=== PATIENT | male | born 1940 | race African-American/Black ===

== ENCOUNTER 2024-01-24 12:00 | Inpatient (IN) | payer MEDICARE ==
[~2024-01-24] VITALS: Ht 167.6 cm; Wt 45.8 kg
[2024-01-24 12:54] LABS: HEMOGLOBIN. 11.3 g/dL (14.0-18.0); MEAN CORPUSCULAR HEMOGLOBIN 27.2 pg (28.0-32.0); MEAN CORPUSCULAR HGB CONC 31.4 g/dL (31.0-37.0); MEAN CORPUSCULAR VOLUME 86.8 fL (80.0-94.0); MEAN PLATELET VOLUME 8.1 fl (7.4-10.4); PLATELET 201 x1000/uL (130-400); RED BLOOD CELL COUNT 4.14 mill/uL (4.7-6.1); RED CELL DISTRIBUTION WIDTH 17.7 % (11.6-14.6); WHITE BLOOD COUNT 27.3 x1000/uL (4.5-11.0)
[2024-01-24 12:58] LABS: DIFFERENTIAL COMMENT 1
[2024-01-24 13:02] LABS: CALCIUM 10.2 mg/dL (8.7-10.4)
[2024-01-24 13:03] LABS: INR 1.1; PROTHROMBIN TIME 12.4 sec (9.6-11.0)
[2024-01-24 13:06] LABS: CREATININE 1.9 mg/dL (0.6-1.3)
[2024-01-24] MEDS: SODIUM CHLORIDE 0.9% 500 ML IV ONE (13:18)
[2024-01-24 13:56] LABS: CLARITY URINE TURBID (CLEAR); COLOR URINE ORANGE (YELLOW); GLUCOSE URINE NEGATIVE (NEGATIVE); KETONES URINE TRACE (NEGATIVE); LEUKOCYTE ESTERASE URINE 3+ (NEGATIVE); NITRITE URINE NEGATIVE (NEGATIVE); OCCULT BLOOD URINE 2+ (NEGATIVE); PROTEIN URINE 2+ (NEGATIVE); SPECIFIC GRAVITY URINE 1.011 (1.005-1.030); UROBILINOGEN URINE 0.2 E.U./dL (0.2-1.0)
[2024-01-24 14:18] LABS: PLATELET ESTIMATE NORMAL; TOXIC VACUOLATION FEW
[2024-01-24 14:23] LABS: BACTERIA URINE 4+
[2024-01-24 14:29] LABS: AMORPHOUS SEDIMENT URINE 2+ /lpf; SQUAMOUS EPITHELIAL CELL URINE FEW /lpf (RARE/1+); YEAST URINE NONE SEEN
[2024-01-24] MEDS: CEFTRIAXONE 1GM/50ML 50 ML IV NR (14:53)
[2024-01-24] MEDS: SODIUM CHLORIDE 0.9% 1,000 ML IV ONE (14:53)
[2024-01-24] MEDS: IOHEXOL-300 100 ML BOTTLE ONE (15:31)
[2024-01-24 15:32] LABS: LACTIC ACID 5.6 mmol/L (0.4-2.0)
[2024-01-24 18:05] VITALS: O2SAT 99
[2024-01-24] MEDS: MIDAZOLAM HCL 2 MG/2 ML VIAL IV ONE (18:05)
[2024-01-24] MEDS: DIPHENHYDRAMINE 50MG/ML VIAL IV ONE (19:40)
[2024-01-24] MEDS: ZIPRASIDONE MESYLATE 20MG/VIAL IM ONE (19:40)
[2024-01-24] MEDS ORDERED: VANCOMYCIN 500 MG in DEXT 5% WATER 100 ML IV ONE (23:15)
[2024-01-24 23:49] LABS: HEMATOCRIT. 34.6 % (42.0-52.0); HEMOGLOBIN. 10.9 g/dL (14.0-18.0); MEAN CORPUSCULAR HEMOGLOBIN 27.2 pg (28.0-32.0); MEAN CORPUSCULAR HGB CONC 31.4 g/dL (31.0-37.0); MEAN CORPUSCULAR VOLUME 86.5 fL (80.0-94.0); MEAN PLATELET VOLUME 7.9 fl (7.4-10.4); PLATELET 173 x1000/uL (130-400); RED CELL DISTRIBUTION WIDTH 18.2 % (11.6-14.6)
[2024-01-24 23:53] LABS: POTASSIUM 3.6 mEq/L (3.5-5.1)
[2024-01-24 23:54] LABS: CALCIUM 9.4 mg/dL (8.7-10.4)
[2024-01-24 23:59] LABS: CREATININE 1.4 mg/dL (0.6-1.3)
[2024-01-24] MEDS: VANCOMYCIN 500MG PREMIX 100 ML IV NR (23:59)
[2024-01-25] VITALS (8 sets, daily range): BP systolic 136–179; BP diastolic 83–121; PULSE 59–124; RESP 14–19; TEMP 36.50292–36.974; O2SAT 94–100
[2024-01-25 00:01] LABS: DIFFERENTIAL COMMENT 1
[2024-01-25 00:25] LABS: LACTIC ACID 4.9 mmol/L (0.4-2.0)
[2024-01-25 00:43] LABS: PLATELET ESTIMATE NORMAL
[2024-01-25] MEDS: CEFTRIAXONE 1GM/50ML 50 ML IV NR (01:27)
[2024-01-25] MEDS: SODIUM CHLORIDE 0.9% (SEPSIS BOLUS) IV NR (03:21)
[2024-01-25 03:25] LABS: BG BASE EXCESS 0.1 mmol/L (-2.0-3.0); BG CARBOXYHEMOGLOBIN 0.2 % (0.5-1.5); BG DEOXYHEMOGLOBIN 6.4 % (0.0-5.0); BG FRACTION INSPIRED OXYGEN 21; BG HCO3 ACT 21.2 mmol/L (21.0-28.0); BG METHEMOGLOBIN 0.3 % (0.5-1.5); BG OXYGEN SATURATION 93.6 % (94.0-98.0); BG OXYHEMOGLOBIN 93.1 % (94.0-98.0); BG PCO2 24.5 mmHg (35.0-48.0); BG PH 7.556 (7.350-7.450); BG TOTAL HEMOGLOBIN 11.2 g/dL (13.5-17.5); BG VENT MODE ROOM AIR
[2024-01-25] MEDS ORDERED: ACETAMINOPHEN 325MG TABLET PO PRN (11:00)
[2024-01-25] MEDS ORDERED: ONDANSETRON HCL 4MG/2ML INJ IV PRN (11:00)
[2024-01-25] MEDS: AMLODIPINE 10MG TABLET PO SCH (11:24)
[2024-01-25] MEDS: METOPROLOL TARTRATE 50MG TABLET PO NR (11:25)
[2024-01-25] MEDS: DEXTROSE 5% WATER 1,000 ML IV SCH (11:25)
[2024-01-25] MEDS: METOPROLOL TARTRATE 50MG TABLET PO SCH (20:14)
[2024-01-25] MEDS: CEFTRIAXONE 1GM/50ML 50 ML IV SCH (20:56)
[2024-01-25] MEDS: PANTOPRAZOLE SODIUM 40 MG/VIAL IV SCH (21:52)
[2024-01-26] VITALS (12 sets, daily range): BP systolic 138–180; BP diastolic 77–100; PULSE 49–85; RESP 12–22; TEMP 36.28068–36.83628; O2SAT 96–100
[2024-01-26] MEDS: HYDRALAZINE 20MG/ML VIAL IV PRN (18:56)
[2024-01-26] MEDS: CEFTAZIDIME PENTAHYDRATE 2 G in DEXT 5% WATER 100 ML IV SCH (18:56)
[2024-01-27] VITALS (13 sets, daily range): BP systolic 116–178; BP diastolic 79–103; PULSE 49–92; RESP 12–25; TEMP 36.16956–36.72516; O2SAT 97–99
[2024-01-27] MEDS: DOCUSATE SODIUM SUGAR FREE 100MG/10ML UDC PO SCH (21:00)
[2024-01-27] MEDS: SENNOSIDES 8.6MG TABLET PO SCH (21:00)
[2024-01-28] VITALS (13 sets, daily range): BP systolic 122–160; BP diastolic 83–96; PULSE 60–85; RESP 12–26; TEMP 36.55848–37.00296; O2SAT 97–100
[2024-01-28] MEDS: FINASTERIDE 5MG TABLET PO SCH (17:02)
[2024-01-28] MEDS: TAMSULOSIN HCL 0.4MG SR CAPSULE PO SCH (17:02)
[2024-01-29] VITALS (9 sets, daily range): BP systolic 124–169; BP diastolic 81–101; PULSE 58–87; RESP 12–20; TEMP 36.114–36.9474; O2SAT 96–100
[2024-01-29] MEDS: AMLODIPINE 5MG TABLET PO SCH (10:34)
[2024-01-29] MEDS: MELATONIN 3MG TABLET PO SCH (21:00)
[2024-01-29 21:13] LABS: BASOPHILS % 0.2 % (0.0-2.0); EOSINOPHILS % 0.1 % (0.0-5.0); HEMATOCRIT. 32.9 % (42.0-52.0); HEMOGLOBIN. 10.7 g/dL (14.0-18.0); LYMPHOCYTES % 17.8 % (20.0-50.0); MEAN CORPUSCULAR HEMOGLOBIN 27.6 pg (28.0-32.0); MEAN CORPUSCULAR HGB CONC 32.5 g/dL (31.0-37.0); MONOCYTES % 8.3 % (2.0-8.0); NEUTROPHILS % 73.6 % (40.0-76.0); PLATELET 176 x1000/uL (130-400); RED BLOOD CELL COUNT 3.87 mill/uL (4.7-6.1); RED CELL DISTRIBUTION WIDTH 17.8 % (11.6-14.6); WHITE BLOOD COUNT 9.7 x1000/uL (4.5-11.0)
[2024-01-29 21:21] LABS: CHLORIDE 107 mEq/L (98-107)
[2024-01-29 21:27] LABS: CREATININE 0.6 mg/dL (0.6-1.3); GLUCOSE 97 mg/dL (70-105); UREA NITROGEN BLOOD 12 mg/dL (9-23)
[2024-01-29 21:28] LABS: ALANINE AMINOTRANSFERASE < 7 IU/L (10-49); AMMONIA 18 uMol/L (<32); ASPARTATE AMINOTRANSFERASE 8 IU/L (<34)
[2024-01-29 21:29] LABS: ALBUMIN 3.2 g/dL (3.2-4.8); BILIRUBIN TOTAL 0.6 mg/dL (0.1-1.0); PROTEIN TOTAL 6.2 g/dL (6.0-8.3)
[2024-01-29 21:53] LABS: CALCIUM 9.1 mg/dL (8.7-10.4); CARBON DIOXIDE 31 mEq/L (21-32); SODIUM 146 mEq/L (136-145)
[2024-01-29 22:21] LABS: POTASSIUM 2.2 mEq/L (3.5-5.1)
[2024-01-29] MEDS ORDERED: POTASSIUM CHLORIDE 20MEQ TABLET SR PO ONE (22:30)
[2024-01-30] VITALS (7 sets, daily range): BP systolic 138–167; BP diastolic 67–100; PULSE 90–111; RESP 19–28; TEMP 36.3918–36.89184; O2SAT 95–100
[2024-01-30] MEDS ORDERED: POTASSIUM CHLORIDE 40 MEQ in DEXT 5% WATER 230 ML IV ONE (00:30)
[2024-01-30] MEDS: POTASSIUM CHLORIDE 40 MEQ in DEXT 5% WATER 500 ML IV NR (00:57)
[2024-01-30] MEDS: POTASSIUM CHLORIDE 40 MEQ in DEXT 5% WATER 500 ML IV SCH (05:18)
[2024-01-30] MEDS: FAMOTIDINE 20MG/2ML VIAL IV SCH (09:06)
[2024-01-30] MEDS: CEFTAZIDIME PENTAHYDRATE 2 G in DEXT 5% WATER 100 ML IV SCH (09:08)
[2024-01-30 13:01] LABS: BASOPHILS % 0.3 % (0.0-2.0); HEMATOCRIT. 34.8 % (42.0-52.0); HEMOGLOBIN. 11.1 g/dL (14.0-18.0); LYMPHOCYTES % 8.7 % (20.0-50.0); MEAN CORPUSCULAR HEMOGLOBIN 27.1 pg (28.0-32.0); MEAN CORPUSCULAR HGB CONC 31.8 g/dL (31.0-37.0); MEAN CORPUSCULAR VOLUME 85.2 fL (80.0-94.0); MEAN PLATELET VOLUME 10.1 fl (7.4-10.4); MONOCYTES % 6.8 % (2.0-8.0); NEUTROPHILS % 84.2 % (40.0-76.0); PLATELET 245 x1000/uL (130-400); RED BLOOD CELL COUNT 4.08 mill/uL (4.7-6.1); RED CELL DISTRIBUTION WIDTH 17.9 % (11.6-14.6); WHITE BLOOD COUNT 13.8 x1000/uL (4.5-11.0)
[2024-01-30 13:06] LABS: CHLORIDE 104 mEq/L (98-107); SODIUM 142 mEq/L (136-145)
[2024-01-30 13:07] LABS: CALCIUM 9.2 mg/dL (8.7-10.4); CARBON DIOXIDE 28 mEq/L (21-32)
[2024-01-30 13:12] LABS: CREATININE 0.8 mg/dL (0.6-1.3); GLUCOSE 222 mg/dL (70-105); UREA NITROGEN BLOOD 14 mg/dL (9-23)
[2024-01-31] VITALS (9 sets, daily range): BP systolic 126–164; BP diastolic 78–116; PULSE 86–103; RESP 15–23; TEMP 36.44736–37.05852; O2SAT 90–100
[2024-01-31 06:32] LABS: CARBON DIOXIDE 27 mEq/L (21-32); CHLORIDE 104 mEq/L (98-107); POTASSIUM 3.4 mEq/L (3.5-5.1); SODIUM 140 mEq/L (136-145)
[2024-01-31 06:33] LABS: CALCIUM 9.1 mg/dL (8.7-10.4)
[2024-01-31 06:38] LABS: CREATININE 0.7 mg/dL (0.6-1.3); GLUCOSE 113 mg/dL (70-105); UREA NITROGEN BLOOD 13 mg/dL (9-23)
[2024-01-31 08:08] LABS: BASOPHILS % 0.1 % (0.0-2.0); EOSINOPHILS % 0.1 % (0.0-5.0); HEMATOCRIT. 30.5 % (42.0-52.0); HEMOGLOBIN. 9.8 g/dL (14.0-18.0); LYMPHOCYTES % 16.7 % (20.0-50.0); MEAN CORPUSCULAR HEMOGLOBIN 27.4 pg (28.0-32.0); MEAN CORPUSCULAR HGB CONC 32.2 g/dL (31.0-37.0); MEAN PLATELET VOLUME 10.2 fl (7.4-10.4); MONOCYTES % 7.4 % (2.0-8.0); NEUTROPHILS % 75.7 % (40.0-76.0); PLATELET 253 x1000/uL (130-400); RED BLOOD CELL COUNT 3.58 mill/uL (4.7-6.1); RED CELL DISTRIBUTION WIDTH 17.5 % (11.6-14.6); WHITE BLOOD COUNT 12.5 x1000/uL (4.5-11.0)
[2024-01-31] MEDS: LACTULOSE 20G/30ML UDC PO SCH (09:20)
[2024-01-31] MEDS: CEFTAZIDIME PENTAHYDRATE 2 G in DEXT 5% WATER 100 ML IV SCH (09:24)
[2024-01-31] MEDS: POTASSIUM CHLORIDE 20MEQ TABLET SR PO NR (09:25)
[2024-01-31] MEDS ORDERED: LORAZEPAM 0.5MG TABLET PO PRN (13:00)
[2024-01-31] MEDS: RISPERIDONE 0.25MG TABLET PO SCH (13:20)
[2024-02-01] VITALS (7 sets, daily range): BP systolic 111–154; BP diastolic 67–115; PULSE 71–85; RESP 13–18; TEMP 36.50292–36.89184; O2SAT 97–100
[2024-02-01] MEDS ORDERED: LIDOCAINE HCL 1% 10 MG/ML 10ML VIAL ONE (07:57)
[2024-02-01 17:51] LABS: CHLORIDE 107 mEq/L (98-107); SODIUM 145 mEq/L (136-145)
[2024-02-01 17:52] LABS: CALCIUM 8.4 mg/dL (8.7-10.4); CARBON DIOXIDE 33 mEq/L (21-32)
[2024-02-01 17:57] LABS: CREATININE 0.7 mg/dL (0.6-1.3); GLUCOSE 176 mg/dL (70-105); UREA NITROGEN BLOOD 14 mg/dL (9-23)
[2024-02-01 18:00] LABS: BASOPHILS % 0.4 % (0.0-2.0); EOSINOPHILS % 1.1 % (0.0-5.0); HEMATOCRIT. 26.9 % (42.0-52.0); HEMOGLOBIN. 8.5 g/dL (14.0-18.0); LYMPHOCYTES % 17.5 % (20.0-50.0); MEAN CORPUSCULAR HEMOGLOBIN 26.7 pg (28.0-32.0); MEAN CORPUSCULAR HGB CONC 31.7 g/dL (31.0-37.0); MEAN CORPUSCULAR VOLUME 84.4 fL (80.0-94.0); MEAN PLATELET VOLUME 9.2 fl (7.4-10.4); PLATELET 354 x1000/uL (130-400); RED BLOOD CELL COUNT 3.19 mill/uL (4.7-6.1); RED CELL DISTRIBUTION WIDTH 17.3 % (11.6-14.6); WHITE BLOOD COUNT 9.2 x1000/uL (4.5-11.0)
[2024-02-01 18:06] LABS: POTASSIUM 2.7 mEq/L (3.5-5.1)
[2024-02-01] MEDS: POTASSIUM CHLORIDE 20MEQ/PACKET PO NR (19:11)
[2024-02-02] VITALS (7 sets, daily range): BP systolic 113–145; BP diastolic 69–93; PULSE 70–96; RESP 14–23; TEMP 36.114–37.05852; O2SAT 99–100
[2024-02-02 11:49] LABS: BASOPHILS % 0.1 % (0.0-2.0); EOSINOPHILS % 0.8 % (0.0-5.0); HEMATOCRIT. 26.5 % (42.0-52.0); HEMOGLOBIN. 8.4 g/dL (14.0-18.0); LYMPHOCYTES % 22.6 % (20.0-50.0); MEAN CORPUSCULAR HEMOGLOBIN 26.9 pg (28.0-32.0); MEAN CORPUSCULAR HGB CONC 31.8 g/dL (31.0-37.0); MEAN CORPUSCULAR VOLUME 84.5 fL (80.0-94.0); MEAN PLATELET VOLUME 9.2 fl (7.4-10.4); MONOCYTES % 4.7 % (2.0-8.0); NEUTROPHILS % 71.8 % (40.0-76.0); PLATELET 389 x1000/uL (130-400); RED BLOOD CELL COUNT 3.14 mill/uL (4.7-6.1); RED CELL DISTRIBUTION WIDTH 17.6 % (11.6-14.6); WHITE BLOOD COUNT 9.9 x1000/uL (4.5-11.0)
[2024-02-02 12:00] LABS: CHLORIDE 102 mEq/L (98-107); POTASSIUM 3.4 mEq/L (3.5-5.1); SODIUM 139 mEq/L (136-145)
[2024-02-02 12:01] LABS: CARBON DIOXIDE 30 mEq/L (21-32)
[2024-02-02 12:06] LABS: CREATININE 0.8 mg/dL (0.6-1.3); GLUCOSE 296 mg/dL (70-105)
[2024-02-02 12:07] LABS: UREA NITROGEN BLOOD 16 mg/dL (9-23)
[2024-02-02 12:09] LABS: PHOSPHORUS 1.8 mg/dL (2.5-4.9)
[2024-02-02] MEDS: MAGNESIUM 2 G PREMIX 50 ML IV SCH (13:36)
[2024-02-02] MEDS: POTASSIUM PHOSPHATE 30 MMOL in SODIUM CHLORIDE 0.9% 490 ML IV ONE (13:36)
[2024-02-03] VITALS (11 sets, daily range): BP systolic 103–176; BP diastolic 75–104; PULSE 65–97; RESP 13–23; TEMP 36.28068–36.72516; O2SAT 97–100
[2024-02-04] VITALS: BP 113/79; PULSE 90; RESP 31; TEMP 36.78072; O2SAT 100
[2024-02-04 00:05] VITALS: BP 127/77; PULSE 85; RESP 33; O2SAT 99
== END 2024-02-04 01:00 | DRG 871 ==
LOC: ER 12:00 → MICUSO 20:33 → EDBEDREQ 20:49 → EDBEDREQTM 20:49 → EDBEDREQSVC 20:49 → 5EST 01-25 10:46
PROVIDERS: ADMIT Family Medicine Adult Medicine; ATTEND Family Medicine Adult Medicine
PROC: 02HV33Z Insertion of Infusion Device into Superior Vena Cava, Percutaneous Approach (ICD-10-PCS; principal; 2024-02-01)
PROC: B548ZZA Ultrasonography of Superior Vena Cava, Guidance (ICD-10-PCS; 2024-02-01)
DX: A41.52 Sepsis due to Pseudomonas (principal); G93.41 Metabolic encephalopathy; J18.9 Pneumonia, unspecified organism; E87.20 Acidosis, unspecified; N13.6 Pyonephrosis; E87.0 Hyperosmolality and hypernatremia; N17.9 Acute kidney failure, unspecified; R65.20 Severe sepsis without septic shock; N32.0 Bladder-neck obstruction; F03.90 Unspecified dementia, unspecified severity, without behavioral disturbance, psychotic disturbance, mood disturbance, and anxiety; I10 Essential (primary) hypertension; H54.3 Unqualified visual loss, both eyes; K59.00 Constipation, unspecified; N40.0 Benign prostatic hyperplasia without lower urinary tract symptoms; Z79.899 Other long term (current) drug therapy
CPT/HCPCS: 36415; 36573; 36600; 71045; 74018; 74177; 76770; 80048; 80053; 81003; 82140; 82375; 82805; 83605; 83735; 84100; 84134; 84145; 84153; 85025; 87077; 87186; 92610; 97162; 99291; A6261; C1725; J0360; J0696; J0713; J1200; J2250; J2470; J3370; J3475; J3480; J3486; J3490; J7040; J7060; J7070; Q9967